=== PATIENT | female | born 1975 | race Caucasian/White ===

== ENCOUNTER 2018-07-03 09:28 | Day surgery (SDC) | payer OTHER ==
[~2018-07-03] VITALS: Ht 165.1 cm; Wt 103.4 kg
[~2018-07-03 09:28] MED LIST: ATEN25 PO; FISH1000 PO; GLYDO11 ML VAG; Methimazole5 MG PO; PROG100 PO; Voltaren100 GM TOP; [UNRECOGNIZED DRUG - OTHER] PO
--- NOTE | 2018-07-03 09:55 | NUR ---
History, Chart, Medications and Allergies reviewed before start of procedure. Patient States Post-Procedure ride home has been arranged.
--- NOTE | 2018-07-03 11:00 | NUR ---
07/03/18 1100 Arianna Almonte NO PRE OP ANTIBIOTICS ORDERED
--- NOTE | 2018-07-03 14:12 | NUR ---
Discharge instructions reviewed with patient. Patient verbalizes understanding. Copy given to patient to take home. PT DENIES QUESTIONS OR CONCERS RELATED TO DISCHARGE. STEADY ON FEET, ABLE TO VOID. TOLERATING PO. Discharged via wheelchair to private car for ride home WITH MOM
== END 2018-07-03 22:56 | disposition home or self-care (01) ==
LOC: ORSCMMR 09:28 → ORD 10:55 → ORSCMMR 22:56
PROVIDERS: Obstetrics & Gynecology
PROC: 0UT74ZZ Resection of Bilateral Fallopian Tubes, Percutaneous Endoscopic Approach (ICD-10-PCS; principal; 2018-07-03 10:55)
DX: Z30.2 Encounter for sterilization (principal); E03.9 Hypothyroidism, unspecified; E66.01 Morbid (severe) obesity due to excess calories; Z68.37 Body mass index [BMI] 37.0-37.9, adult; Z79.899 Other long term (current) drug therapy
CPT/HCPCS: 88302; J1100; J2250; J2405; J2710; J2765; J3010; J7120

== ENCOUNTER → 2020-05-10 | Outpatient (CLI) | payer OTHER | END | disposition home or self-care (01) | LOC: LAB SHORT 09:06 → LAB EV 09:06 | DX: N39.0 Urinary tract infection, site not specified (principal) | CPT/HCPCS: 87086 ==

== ENCOUNTER → 2020-05-11 | Outpatient (CLI) | payer OTHER ==
[2020-05-16 11:07] LABS: HPV 16 Negative (Negative); HPV 18 Negative (Negative); HPV OTHER HR TYPES Negative (Negative)
== END | disposition home or self-care (01) ==
LOC: LAB SHORT 16:15 → LAB 16:15
PROVIDERS: Obstetrics & Gynecology
DX: Z01.419 Encounter for gynecological examination (general) (routine) without abnormal findings (principal)
CPT/HCPCS: 87624; G0123

== ENCOUNTER → 2020-05-30 | Outpatient (CLI) | payer OTHER ==
[2020-05-30 18:16] LABS: Source, Urine Clean Catch
[2020-05-30 19:08] LABS: Appearance, Urine Clear (Clear); Bilirubin, Urine Neg (Neg); Blood, Urine Neg (Neg); Color, Urine Yellow (P-Yellow); Glucose Qualitative, Urine Neg (Neg); Ketones, Urine Neg (Neg); Leukocyte Esterase, Urine Neg (Neg); Nitrite, Urine Neg (Neg); Protein, Urine Neg (Neg); Specific Gravity, Urine 1.015 (1.003-1.022); Urobilinogen, Urine NORM (Normal); pH, Urine 6.5 (5.0-8.0)
== END ==
LOC: LAB SHORT 18:14 → LAB 18:14
PROVIDERS: Obstetrics & Gynecology
DX: N39.0 Urinary tract infection, site not specified (principal)
CPT/HCPCS: 81003

== ENCOUNTER → 2020-12-02 | Outpatient (CLI) | payer OTHER | END | disposition home or self-care (01) | LOC: LAB SHORT 19:26 → LAB 19:26 | DX: J02.9 Acute pharyngitis, unspecified (principal) | CPT/HCPCS: 87081 ==

== ENCOUNTER → 2022-11-28 | Outpatient (CLI) | payer OTHER | END | disposition home or self-care (01) | LOC: LAB 16:43 → LAB SHORT 16:43 | DX: R30.0 Dysuria (principal) | CPT/HCPCS: 87086 ==

== ENCOUNTER 2023-06-19 09:40 | Day surgery (SDC) | payer OTHER ==
[~2023-06-19] VITALS: Ht 165.1 cm; Wt 105.5 kg
[2023-06-19] VITALS (7 sets, daily range): BP systolic 118–140; BP diastolic 69–85
[~2023-06-19 09:40] MED LIST changes: +Lactated Ringer's 1,000 ML IV SCH
[2023-06-19] MEDS ORDERED: FentaNYL Citrate 50 MCG/ML 2 ML Injection ONE (10:01)
[2023-06-19] MEDS ORDERED: propofoL 20 ML IV ONE ×2 (10:01→11:01)
[2023-06-19] MEDS ORDERED: Ondansetron HCl 2 MG / ML 2ML Vial ONE (10:03)
[2023-06-19] MEDS ORDERED: Dexamethasone Sod Phos 10 MG/ML 1ML VIAL ONE (10:03)
[2023-06-19] MEDS ORDERED: Ketorolac Tromethamine 30mg Vial ONE (10:03)
[2023-06-19] MEDS ORDERED: Lidocaine HCl 1% 5 ML SYR INJ ONE (10:05)
[2023-06-19] MEDS ORDERED: Midazolam HCl 1MG / ML 2ML Vial IV PRN (10:05)
[2023-06-19] MEDS ORDERED: Metoclopramide HCl 5MG / ML 2ML Vial IV PRN (10:05)
[2023-06-19] MEDS ORDERED: HYDROmorphone HCl/Pf 1MG SYR IV PRN (10:05)
[2023-06-19] MEDS ORDERED: FentaNYL Citrate 50 MCG/ML 2 ML Injection IV PRN ×3 (10:05→10:10)
[2023-06-19] MEDS ORDERED: Ondansetron HCl 2 MG / ML 2ML Vial IV PRN (10:10)
[2023-06-19] MEDS ORDERED: LORA1SY PO (10:20)
[2023-06-19] MEDS ORDERED: LevonorgestreL 1 EACH IUD VAG ONE (10:40)
--- NOTE | 2023-06-19 11:32 | NUR ---
06/19/23 1132 Carmen Urias IUD INSERTION: LOT#:[id number] EXPIRATION:
[2023-06-19] MEDS ORDERED: OxyCODONE 5 mg/Acetamin 325 mg TABLET PO PRN ×2 (11:45→12:00)
--- NOTE | 2023-06-19 12:58 | NUR ---
Discharge instructions reviewed with patient. Patient verbalizes understanding. Copy given to patient to take home. Patient States Post-Procedure ride home has been arranged. Pt declined wheelchair for discharge, walked with pt to ride, gait steady.
== END 2023-06-19 12:55 | disposition home or self-care (01) ==
LOC: ORSCMMR 09:40 → ORD 11:30 → ORSCMMR 11:30
PROVIDERS: Obstetrics & Gynecology
PROC: 0UPD7HZ Removal of Contraceptive Device from Uterus and Cervix, Via Natural or Artificial Opening (ICD-10-PCS; principal; 2023-06-19 11:30)
PROC: 0UH97HZ Insertion of Contraceptive Device into Uterus, Via Natural or Artificial Opening (ICD-10-PCS; principal; 2023-06-19 11:30)
DX: T83.89XA Other specified complication of genitourinary prosthetic devices, implants and grafts, initial encounter (principal); Z30.430 Encounter for insertion of intrauterine contraceptive device; N92.0 Excessive and frequent menstruation with regular cycle; Z79.899 Other long term (current) drug therapy; E66.9 Obesity, unspecified; Z68.38 Body mass index [BMI] 38.0-38.9, adult
CPT/HCPCS: 82947; A9270; J1100; J1885; J2250; J2405; J2704; J3010; J7120; J7297

== ENCOUNTER → 2023-07-31 | Outpatient (CLI) | payer OTHER ==
[~2023-07-31] MED LIST changes: +LORA1SY PO; -Lactated Ringer's 1,000 ML IV SCH
[2023-08-01 10:47] LABS: Candida species (DNA Probe) Negative (NEGATIVE); G. vaginalis (DNA Probe) Negative (NEGATIVE); T. vaginalis (DNA Probe) Negative (NEGATIVE)
== END ==
LOC: LAB 16:50 → LAB SHORT 16:50
PROVIDERS: Obstetrics & Gynecology
DX: N76.0 Acute vaginitis (principal)
CPT/HCPCS: 87480; 87510; 87660

== ENCOUNTER → 2023-11-05 | Outpatient (CLI) | payer OTHER ==
[2023-11-05 13:25] LABS: BASOPHILS ABSOLUTE AUTO 0.05 K/mm3 (0.00-0.23); BASOPHILS PERCENT AUTO 1 % (0-2); EOSINOPHILS ABSOLUTE AUTO 0.13 K/mm3 (0.00-0.68); EOSINOPHILS PERCENT AUTO 2 % (0-6); Hemoglobin 14.5 g/dL (11.5-16.0); IMMATURE GRAN ABSOLUTE AUTO 0.02 K/mm3 (0.00-0.10); IMMATURE GRAN PERCENT AUTO 0 % (0-1); LYMPHOCYTES ABSOLUTE AUTO 1.06 K/mm3 (0.84-5.20); LYMPHOCYTES PERCENT AUTO 14 % (21-46); MONOCYTES ABSOLUTE AUTO 0.38 K/mm3 (0.16-1.47); MONOCYTES PERCENT AUTO 5 % (4-13); Mean Corpuscular HGB 28.5 pg (26.0-34.0); Mean Corpuscular HGB Conc 34.5 g/dL (31.5-36.5); Mean Corpuscular Volume 83 fL (80-100); Mean Platelet Volume 11.5 fL (9.1-12.4); NEUTROPHILS ABSOLUTE AUTO 6.06 K/mm3 (1.96-9.15); NEUTROPHILS PERCENT AUTO 79 % (41-73); Platelet Count 227 K/mm3 (150-400); RDW Coefficient Variation 13.8 % (11.7-14.2); Red Blood Cell Count 5.09 M/mm3 (3.80-5.20)
[2023-11-05 13:35] LABS: Albumin, Blood 3.7 g/dL (3.4-5.0); Bilirubin, Total 0.6 mg/dL (0.1-1.0); Bun/Creatinine Ratio 17.7 (12.0-20.0); Calcium, Blood 8.6 mg/dL (8.5-10.1); Creatinine, Blood 0.96 mg/dL (0.40-1.00); Globulin, Blood 3.8 g/dL (2.2-4.0); Potassium, Blood 4.2 mmol/L (3.5-5.5); Total Protein, Blood 7.5 g/dL (6.4-8.2)
[2023-11-06 20:57] LABS: CMV ANTIBODY IGG <0.20 U/mL (<=0.70)
[2023-11-07 14:54] LABS: B. BURGDORFERI IGG IMMUNOBLOT Negative (Negative); B. BURGDORFERI IGM IMMUNOBLOT Negative (Negative)
== END | disposition home or self-care (01) ==
LOC: LAB SHORT 13:19 → LAB 13:19
PROVIDERS: Physician Assistant Medical
DX: R50.9 Fever, unspecified (principal)
CPT/HCPCS: 80053; 85025; 86617; 86644; 86645

== ENCOUNTER → 2024-09-04 | Outpatient (CLI) | payer OTHER | LOC: LAB SHORT 10:35 → LAB 10:35 | DX: R30.0 Dysuria (principal) | CPT/HCPCS: 87086 ==